=== PATIENT | female | born 1965 | race Caucasian/White ===

== ENCOUNTER → 2017-07-20 | Outpatient (CLI) | payer OTHER ==
--- NOTE | 2017-07-23 07:35 | MAMMOGRAPHY REPORT ---
BILATERAL DIGITAL SCREENING MAMMOGRAM TOMOSYNTHESIS WITH CAD: 07/20/2017 CLINICAL HISTORY: Routine screening. TECHNIQUE: Breast tomosynthesis in addition to standard 2D mammography was performed. Current study was also evaluated with a Computer Aided Detection (CAD) system. COMPARISON: Comparison is made to exams dated: 05/30/2016 mammogram, 04/26/2015 mammogram, 02/18/2014 mammogram, 01/21/2013 mammogram, 12/06/2011 mammogram, and 11/22/2010 mammogram - [facility] enter. BREAST COMPOSITION: The tissue of both breasts is heterogeneously dense, which may obscure small mas ses. FINDINGS: No suspicious masses, calcifications, or areas of architectural distortion are noted in ei ther breast. There has been no significant interval change compared to prior exams. Grouped benign-a ppearing calcifications in the right 12:00 breast are stable compared to multiple prior exams. IMPRESSION: ACR BI-RADS CATEGORY 2: BENIGN There is no mammographic evidence of malignancy. A 1 year screening mammogram is recommended. The pa tient will receive written notification of the results. Approximately 10% of breast cancers are not detected with mammography. A negative mammographic report should not delay biopsy if a clinically suggestive mass is present. Alecia Brunson M.D. ah/:07/20/2017 15:34:18 Home Care Coordinator: Biju CARRERA(Alejandro)(M), [facility] letter sent: Normal 1/2 BI-RADS Code: ACR BI-RADS Category 2: Benign
== END | disposition home or self-care (01) ==
LOC: C.MAMM 15:12
PROVIDERS: ATTEND Family Medicine
DX: Z12.31 Encounter for screening mammogram for malignant neoplasm of breast (principal)

== ENCOUNTER 2021-09-01 08:35 | Observation (INO) ==
[2021-09-01] MEDS ORDERED: SODIUM CHLORIDE 0.9% 500 ML IV STA (08:46)
[2021-09-01] MEDS ORDERED: ONDANSETRON INJ 2 MG/ML 2 ML VIAL IV STA (08:46)
[2021-09-01] MEDS ORDERED: MoRPHine SULFATE 4 MG/ML 1 ML CARP\\VIAL IV STA (08:46)
--- NOTE | 2021-09-01 09:09 | Emergency Department Note ---
Impression & Plan Closed fracture of left proximal humerus, Syncope, Fall, Abnormal EKG ED Provider Note RemedyNAME: CELIA RUIZ AGE: 56 SEX: F : 1965 ARRIVES VIA: Ambulance INFORMANT: Patient, ED PROVIDER(S): Mickey Villarreal DO CHIEF COMPLAINT: Arm pain HPI: The patient is a 56-year-old female who was on a stool working above her he ad when she fell. The patient states she fell onto her abdomen but also onto her left upper extremity. The patient states she had a syncopal episode after the fall. She was on the floor and remembers waking up. She denies having any head injury but she is unsure. She denies having any abdominal pain or chest pain. She does complain of lower back pain. She denies have any lower extremity pain. She was able to ambulate with help. She was splinted and brought to the emergency department via BLS. The patient states the pain is severe and she is feeling pain in her left upper extremity. She denies having any numbness in the arm. She denies having any difficulty with pain in the elbow or the forearm or the wrist on the left upper extremity. The patient states the pain is severe and worsens with any attempts at movement of the left shoulder or the left upper extremity. She denies having neck pain. ROS: See above HPI for pertinent positives & negatives. A total of 10 systems reviewed and were otherwise negative. PAST MEDICAL HISTORY: See Below PAST SURGICAL HISTORY: See Below FAMILY HISTORY: See Below SOCIAL HISTORY: See Below HOME MEDICATIONS: See Below ALLERGIES: See Below VITALS: See Below PHYSICAL EXAMINATION: GENERAL: The patient is awake and alert. She appears very anxious and appears to be in severe pain. EYES: Previous surgical intervention was noted. EARS, NOSE, MOUTH AND THROAT: The nose is without any evidence of any deformity. NECK: The neck is nontender and supple. RESPIRATORY: Normal respiratory effort is noted there is no evidence of wheezing rhonchi or rales CARDIOVASCULAR: Regular rate and rhythm noted there no murmurs rubs or gallops normal S1 normal S2. GASTROINTESTINAL: The abdomen is soft. Abdomen is nontender. BACK: There was no thoracic spine tenderness to palpation. Low lumbar spine tenderness was noted to palpation. There is no step-off. MUSCULOSKELETAL/EXTREMITIES: There is no evidence of gross deformity full range of motion is noted in the hips and shoulders. SKIN: There is no obvious evidence of any rash. There are no petechiae, pallor or cyanosis noted. NEUROLOGIC: Patient is awake alert and oriented x3 strength is symmetric patellar reflexes are 2+ bilaterally MEDICAL DECISION MAKING: Patient is a 56-year-old female who presented to emergency department after a fall. The patient was on a stepstool and had a fall she landed on her she suffered a proximal left humerus fracture. When she went to get up she had a syncopal episode. The patient presented to the emergency department with significant pain. Further laboratory and radiographic studies were obtained. She was treated with IV fluids and IV pain medication in the emergency depar tment. Attempts were made to apply a splint but the patient had very severe pain with any movement of the left upper extremity. I discussed her condition with the orthopedic surgeon of her choice. The patient required sedation in order to apply the splint. The patient was reevaluated multiple times. I discussed her case also with the on-call [facility] hospitalist group. They will evaluate the patient in the emergency department for further management and disposition. Certainly I feel the patient may benefit from inpatient management and if she still cannot receive significant pain relief with splinting she may require inpatient rehab. After discussion with the on-call orthopedic surgeon it does not appear that she will definitely require surgery given the morphology of the fracture. She was placed in a sling. Triage Nursing notes reviewed. Prior medical records reviewed Vital Signs: reviewed and remarkable for no significant abnormalities Differential diagnosis: Vasovagal event, dehydration, infection, hypoglycemia, electrolyte abnormalities, cardiac sources, intracerebral event, pulmonary embolism, seizure, toxicologic, neurologic, as well as other pathologies. ER treatment provided: See below Diagnostics interpreted by me: ECG: EKG was obtained in the emergency department. My interpretation is sinus rhythm at 73 bpm. First-degree block was noted. There is no ectopy. Anterior T wave inversions were noted. No previous tracing was available. Cardiac Monitoring: An order was placed for continuous cardiac monitoring. The monitor shows a rate of 72 bpm with sinus rhythm. Laboratory studies: As stated above and show below. Imaging studies: See below Consultation(s): I discussed this case with Dr. Arreguin. The patient requested that I discussed the case with Dr. Arreguin. He did evaluate the patient's x-rays. I discussed this case with Kassandra who is on-call for the [facility] hospitalist group. 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 Refrigeration Required: No Beliefs That Will Affect Care: None Current Living Situation: Spouse Feels Safe at Home: Yes Assistive Devices: None Allergies Allergies Allergy/AdvReac Type Severity Reaction Status Date / Time pseudoephedrine AdvReac Anxiety Verified 09/01/21 10:44 [From Saira] Home Meds Home Medications Medication Instructions Recorded Confirmed levothyroxine 88 mcg tablet 88 mcg PO DAILYBB 04/26/18 09/01/21 omeprazole 20 mg capsule,delayed 20 mg PO DAILYBB 09/01/21 09/01/21 release Results & Data (ED) Vital Signs Vital Signs - 24 hr 09/01/21 08:40 09/01/21 10:00 09/01/21 12:20 Temperature 36.5 C Temperature Source Oral Pulse Rate 68 Pulse Rate [Left Finger] 78 84 Pulse Rhythm Regular Pulse Strength Normal Respiratory Rate 18 20 20 Respiratory Effort / Characteristics Non-Labored Spontaneous Respiratory Depth Normal Respiratory Pattern Regular Blood Pressure 124/72 Blood Pressure [Right Arm] 123/74 119/53 L Blood Pressure Mean 89 Blood Pressure Mean [Right Arm] 90 75 Blood Pressure Position Sitting Blood Pressure Position [Right Arm] Sitting Sitting Pulse Oximetry 99 97 97 Oxygen Delivery Method Room Air Room Air Oxygen Flow Rate Sepsis Recent Fever Within 48 Hours No Sepsis New/Unexplained Change in Mental Status No Sepsis Action Taken by Nursing No Action Required 09/01/21 14:28 09/01/21 14:33 Temperature Temperature Source Pulse Rate Pulse Rate [Left Finger] 101 H 87 Pulse Rhythm Pulse Strength Respiratory Rate 20 16 Respiratory Effort / Characteristics Respiratory Depth Respiratory Pattern Blood Pressure Blood Pressure [Right Arm] 146/98 H 129/91 Blood Pressure Mean Blood Pressure Mean [Right Arm] 114 103 Blood Pressure Position Blood Pressure Position [Right Arm] Sitting Sitting Pulse Oximetry 91 98 Oxygen Delivery Method Nasal Cannula Nasal Cannula Oxygen Flow Rate 3 3 Sepsis Recent Fever Within 48 Hours Sepsis New/Unexplained Change in Mental Status Sepsis Action Taken by Retirement Medications Current Medication List: was personally reviewed by me Laboratory Data Attestation: I reviewed the patient's lab results. Result diagrams: 09/01/21 10:27 09/01/21 10:27 Lab Results 09/01/21 09/01/21 09/01/21 Range/Units 10:27 10: 10: WBC 11.03 H (4.8-10.8) K/uL RBC 4.08 L (4.2-5.4) M/uL Hgb 11.9 L (12.0-16.0) g/dL Hct 36.0 L (37-47) % MCV 88.2 (80-100) fL MCH 29.2 (25-34) pg MCHC 33.1 (32-36) g/dL RDW Std Deviation 43.5 (36.4-46.3) fL RDW Coeff of Winter 13.4 (11.5-14.5) % Plt Count 209 (130-400) K/uL MPV 10.8 H (7.4-10.4) fL Immature Gran % (Auto) 0.2 % Neut % (Auto) 89.2 % Lymph % (Auto) 4.4 % Dawson % (Auto) 5.7 % Eos % (Auto) 0.3 % Baso % (Auto) 0.2 % Neut # (Auto) 9.85 H (1.4-6.5) K/uL Lymph # (Auto) 0.48 L (1.2-3.4) K/uL Dawson # (Auto) 0.63 H (0.11-0.59) K/uL Eos # (Auto) 0.03 (0-0.5) K/uL Baso # (Auto) 0.02 (0-0.2) K/uL Immature Gran # (Auto) 0.02 (0.00-0.02) K/uL PT 10.3 (9.0-12.0) Seconds INR 1.0 (0.9-1.1) APTT 25.1 (21.0-31.0) Seconds PTT Ratio 1.0 Sodium 139 (136-145) mmol/L Potassium 4.2 (3.5-5.1) mmol/L Chloride 108 H (98-107) mmol/L Carbon Dioxide 25 (21-32) mmol/L Anion Gap 6 (3-11) BUN 21 (6-23) mg/dl Creatinine 0.60 (0.6-1.2) mg/dl Est Cr Clr Drug Dosing 110.3 ml/min Est GFR ( Amer) 118.1 ml/min Est GFR (Non-Af Amer) 101.9 ml/min BUN/Creatinine Ratio 35.0 H (10-20) Glucose 95 (70-99(Fasting)) mg/dl Calcium 8.1 L (8.5-10.1) mg/dl Total Bilirubin 0.3 (0.2-1.0) mg/dl AST 16 (13-39) U/L ALT 7 (7-52) U/L Alkaline Phosphatase 62 (34-104) U/L Troponin I < 0.03 (0-0.04) ng/ml Total Protein 6.6 (6.0-8.3) gm/dl Albumin 3.8 (3.4-5.0) gm/dl Globulin 2.8 (2.5-4.0) gm/dl Albumin/Globulin Ratio 1.4 (0.9-2) Lipase 30 (11-82) U/L SARS-CoV-2, RNA, NAAT (NEGATIVE) 09/01/21 Range/Units 14:20 WBC (4.8-10.8) K/uL RBC (4.2-5.4) M/uL Hgb (12.0-16.0) g/dL Hct (37-47) % MCV (80-100) fL MCH (25-34) pg MCHC (32-36) g/dL RDW Std Deviation (36.4-46.3) fL RDW Coeff of Winter (11.5-14.5) % Plt Count (130-400) K/uL MPV (7.4-10.4) fL Immature Gran % (Auto) % Neut % (Auto) % Lymph % (Auto) % Dawson % (Auto) % Eos % (Auto) % Baso % (Auto) % Neut # (Auto) (1.4-6.5) K/uL Lymph # (Auto) (1.2-3.4) K/uL Dawson # (Auto) (0.11-0.59) K/uL Eos # (Auto) (0-0.5) K/uL Baso # (Auto) (0-0.2) K/uL Immature Gran # (Auto) (0.00-0.02) K/uL PT (9.0-12.0) Seconds INR (0.9-1.1) APTT (21.0-31.0) Seconds PTT Ratio Sodium (136-145) mmol/L Potassium (3.5-5.1) mmol/L Chloride (98-107) mmol/L Carbon Dioxide (21-32) mmol/L Anion Gap (3-11) BUN (6-23) mg/dl Creatinine (0.6-1.2) mg/dl Est Cr Clr Drug Dosing ml/min Est GFR ( Amer) ml/min Est GFR (Non-Af Amer) ml/min BUN/Creatinine Ratio (10-20) Glucose (70-99(Fasting)) mg/dl Calcium (8.5-10.1) mg/dl Total Bilirubin (0.2-1.0) mg/dl AST (13-39) U/L ALT (7-52) U/L Alkaline Phosphatase (34-104) U/L Troponin I (0-0.04) ng/ml Total Protein (6.0-8.3) gm/dl Albumin (3.4-5.0) gm/dl Globulin (2.5-4.0) gm/dl Albumin/Globulin Ratio (0.9-2) Lipase (11-82) U/L SARS-CoV-2, RNA, NAAT NEGATIVE (NEGATIVE) Administered Medications Morphine Sulfate (Morphine Sulfate 4 Mg/Ml 1 Ml Carp\Vial) 4 mg IV Q30M PRN PRN Reason: Pain Stop: 09/15/21 08:45 Last Admin: 09/01/21 12:39 Dose: 4 mg Documented by: [id number] Admin: 09/01/21 10:14 Dose: 4 mg Documented by: [id number] Discontinued Medications Hydromorphone HCl (Hydromorphone Inj 1 Mg/Ml Syringe) 1 mg IV NOW STA Stop: 09/01/21 13:11 Last Admin: 09/01/21 13:54 Dose: 1 mg Documented by: [id number] Sodium Chloride (Nss) 500 mls @ 999 mls/hr IV .Q31M STA Stop: 09/01/21 09:16 Last Infusion: 09/01/21 10:08 Dose: 0 mls/hr Documented by: [id number] Admin: 09/01/21 09:37 Dose: 999 mls/hr Documented by: [id number] Promethazine HCl 12.5 mg/ (Sodium Chloride) 50.5 mls @ 202 mls/hr IV NOW STA Stop: 09/01/21 12:40 Last Infusion: 09/01/21 12:51 Dose: 0 mls/hr Documented by: [id number] Admin: 09/01/21 12:36 Dose: 202 mls/hr Documented by: [id number] Sodium Chloride (Nss 1000ml) 1,000 mls @ 999 mls/hr IV .Q1H1M ONE Stop: 09/01/21 15:10 Last Admin: 09/01/21 14:43 Dose: 999 mls/hr Documented by: [id number] Ketamine HCl (Ketamine Hcl Inj 50 Mg/Ml 10 Ml Vial) Confirm Administered Dose 500 mg .ROUTE .STK-MED ONE Stop: 09/01/21 14:10 Last Increment: 09/01/21 14:30 Dose: 40 mg Documented by: [id number] Morphine Sulfate (Morphine Sulfate 4 Mg/Ml 1 Ml Carp\Vial) 4 mg IV NOW STA Stop: 09/01/21 08:47 Last Admin: 09/01/21 09:37 Dose: 4 mg Documented by: [id number] Ondansetron HCl (Ondansetron Inj 2 Mg/Ml 2 Ml Vial) 4 mg IV NOW STA Stop: 09/01/21 08:47 Last Admin: 09/01/21 09:37 Dose: 4 mg Documented by: [id number] Ondansetron HCl (Ondansetron Inj 2 Mg/Ml 2 Ml Vial) Confirm Administered Dose 4 mg .ROUTE .STK-MED ONE Stop: 09/01/21 10:50 Last Admin: 09/01/21 10:52 Dose: 4 mg Documented by: [id number] Promethazine HCl (Promethazine Hcl Inj 25 Mg/Ml 1 Ml Vial) Confirm Administered Dose 25 mg .ROUTE .STK-MED ONE Stop: 09/01/21 12:30 Last Admin: 09/01/21 12:38 Dose: Not Given Documented by: [id number] Imaging Data Radiologist's Impression: Cervical Spine CT 09/01/21 08:46 CT cervical spine wo con CLINICAL HISTORY: Status post fall with neck pain COMPARISON STUDY: No previous studies for comparison. CT DOSE: 1625.91 mGy.cm TECHNIQUE: Standard CT of the Cervical Spine was performed without IV contrast. A dose lowering technique was utilized adhering to the principles of ALARA. FINDINGS: Bones: There is no evidence for an acute fracture or malalignment. The heights of the vertebral bodies are maintained. The vertebral bodies are in anatomic alignment. The odontoid is intact and the atlantoaxial articulation is within normal limits. Disc spaces:There is mild disc space narrowing at C3-4 and moderate disc space narrowing at C4-5 with mild endplate osteophyte formation. Apophyseal joints:Mild degenerative apophyseal joint disease is also present at these 2 disc space levels. Soft tissues:The prevertebral soft tissues are within normal limits. IMPRESSION: 1. No acute abnormality. 2. Degenerative disc and degenerative joint disease. ACT 112: Negative or not required by law. Electronically signed by: Dov Clifton M.D. 09/01/2021 10:10 AM Chest X-Ray 09/01/21 08:46 XR chest 1V portable HISTORY: 56 years-old Female Chest Pain acute atypical chest pain with left upper extremity pain COMPARISON: Left humerus radiographs of same day, KUB 04/28/2018. TECHNIQUE: AP view of the chest FINDINGS: Cardiac silhouette is mildly enlarged. No pneumothorax, pleural effusion or overt pulmonary edema. Mild interstitial coarsening is likely projectional. Degenerative changes of the shoulders and spine. Mildly angulated and displaced spiral fracture of the proximal left humeral diaphysis. IMPRESSION: 1. No acute cardiopulmonary abnormality. 2. Acute displaced fracture of the proximal left humeral diaphysis. ACT 112: Negative or not required by law. The above report was generated using voice recognition software. It may contain grammatical, syntax or spelling errors. Electronically signed by: Jose Middleton M.D. 09/01/2021 10:[address] 09/01/21 08:46 CT head/brain wo con CLINICAL HISTORY: Status post fall with pain COMPARISON STUDY: No previous studies for comparison. CT DOSE: TECHNIQUE: Standard CT of the Brain was performed without IV contrast. A dose lowering technique was utilized adhering to the principles of ALARA. FINDINGS: Extraaxial space: There is no evidence for subdural hematoma. There are no extra-axial fluid collections. Ventricles and cisterns: The ventricles are normal in size and configuration. There is no evidence for midline shift or mass effect. Parenchyma: There is no subarachnoid or intraparenchymal hemorrhage. There is no evidence for an acute infarct or cerebral edema. There is homogeneous attenuation of the brain parenchyma. There are no gross mass lesions. Osseous structures: There is no evidence for an acute fracture. The visualized paranasal sinuses are clear. The mastoid air cells are clear bilaterally. Soft tissues: There is no evidence for focal soft tissue swelling. IMPRESSION: No acute intracerebral pathology. ACT 112: Negative or not required by law. Electronically signed by: Dov Clifton M.D. 09/01/2021 10:07 AM Humerus X-Ray 09/01/21 08:46 XR humerus LT 2V HISTORY: 56 years-old Female fall acute left upper arm pain status post fall COMPARISON: Chest radiograph of same day TECHNIQUE: 2 views of the left humerus FINDINGS: There is an acute spiral fracture deformity of the proximal humeral diaphysis which demonstrates 12 mm medial displacement with apex lateral angulation of 8 degrees. Moderate associated soft tissue swelling. No glenohumeral dislocation. Mild cortical irregularity of the greater tuberosity. No opaque foreign body. IMPRESSION: 1. Acute mildly angulated and displaced fracture of the proximal diaphyseal left humerus. 1. Mild cortical irregularity of the greater tuberosity is likely projectional. An additional acute fracture is considered less likely. ACT 112: Negative or not required by law. The above report was generated using voice recognition software. It may contain grammatical, syntax or spelling errors. Electronically signed by: Jose Middleton M.D. 09/01/2021 10:[address] 09/01/21 08:46 CT lumbar spine wo con HISTORY: 56 years-old Female fall acute low back pain status post fall COMPARISON: CT abdomen and pelvis 04/26/2018 TECHNIQUE: Multiple axial CT images of the lumbar spine were obtained without the use of IV contrast. A dose lowering technique was used consistent with the principals of ALARA. FINDINGS: There is an acute mildly displaced spiral type fracture deformity of the proximal left humeral diaphysis seen on the bottle packer localizer image the imaged intra-abdominal structures demonstrate no acute abnormality. 2 mm nonobstructing calculus of the interpolar right kidney. Punctate nonobstructing calculus of the inferior pole left kidney. There are a few small left-sided renal sinus cysts. No adenopathy or paravertebral edema. Mild fecal retention. Visualized appendix is noninflamed. Moderate to severe L5-S1 intervertebral disc space narrowing with moderate spondylitic spurring and small posterior disc osteophyte complex. Mild additional multilevel intervertebral disc space narrowing with spondylitic spurring and mostly mild facet arthrosis. There is moderate L5-S1 facet arthrosis. Subtle linear lucency of the left L3 transverse process suggestive of a vascular channel. No acute fracture or subluxation identified. L3-L4: Spondylitic spurring with posterior annular disc bulge, eccentric to the left neural foramen and far left lateral distribution. Flattening of the ventral thecal sac without significant central canal stenosis. There is mild right with [id number] left neural foraminal stenosis. L4-L5: Spondylitic spurring with small posterior annular disc bulge. Ligamentum flavum thickening with mild facet arthrosis. Flattening of the ventral thecal sac without significant central canal stenosis. Mild bilateral neural foraminal narrowing. L5-S1: Small posterior disc osteophyte complex with moderate facet arthrosis. Central canal is patent. There is at least mild bilateral neural foraminal narrowing. IMPRESSION: 1. Degenerative changes of the lumbar spine as above without acute fracture or subluxation. 2. Nonobstructing bilateral nephrolithiasis. ACT 112: Negative or not required by law. The above report was generated using voice recognition software. It may contain grammatical, syntax or spelling errors. Electronically signed by: Jose Middleton M.D. 09/01/2021 10:30 AM Discharge Plan Visit Data Chief Complaint: Arm Pain Stated Complaint: FALL, ARM FX ED Provider: Mickey Villarreal Discharge Problem: Closed fracture of left proximal humerus, Syncope, Fall, Abnormal EKG Patient Disposition: Being Evaluated by Hospitalist
--- NOTE | 2021-09-01 10:08 | CT Scan Report ---
CT head/brain wo con CLINICAL HISTORY: Status post fall with pain COMPARISON STUDY: No previous studies for comparison. CT DOSE: TECHNIQUE: Standard CT of the Brain was performed without IV contrast. A dose lowering technique was utilized adhering to the principles of ALARA. FINDINGS: Extraaxial space: There is no evidence for subdural hematoma. There are no extra-axial fluid collecti ons. Ventricles and cisterns: The ventricles are normal in size and configuration. There is no evidence f or midline shift or mass effect. Parenchyma: There is no subarachnoid or intraparenchymal hemorrhage. There is no evidence for an acu te infarct or cerebral edema. There is homogeneous attenuation of the brain parenchyma. There are no gross mass lesions. Osseous structures: There is no evidence for an acute fracture. The visualized paranasal sinuses are clear. The mastoid air cells are clear bilaterally. Soft tissues: There is no evidence for focal soft tissue swelling. IMPRESSION: No acute intracerebral pathology. ACT 112: Negative or not required by law. Electronically signed by: Dov Clifton M.D. 09/01/2021 10:07 AM
--- NOTE | 2021-09-01 10:11 | CT Scan Report ---
CT cervical spine wo con CLINICAL HISTORY: Status post fall with neck pain COMPARISON STUDY: No previous studies for comparison. CT DOSE: 1625.91 mGy.cm TECHNIQUE: Standard CT of the Cervical Spine was performed without IV contrast. A dose lowering te chnique was utilized adhering to the principles of ALARA. FINDINGS: Bones: There is no evidence for an acute fracture or malalignment. The heights of the vertebral sabine s are maintained. The vertebral bodies are in anatomic alignment. The odontoid is intact and the atla ntoaxial articulation is within normal limits. Disc spaces:There is mild disc space narrowing at C3-4 and moderate disc space narrowing at C4-5 with mild endplate osteophyte formation. Apophyseal joints:Mild degenerative apophyseal joint disease is also present at these 2 disc space le vels. Soft tissues:The prevertebral soft tissues are within normal limits. IMPRESSION: 1. No acute abnormality. 2. Degenerative disc and degenerative joint disease. ACT 112: Negative or not required by law. Electronically signed by: Dov Clifton M.D. 09/01/2021 10:10 AM
[2021-09-01] MEDS: MoRPHine SULFATE 4 MG/ML 1 ML CARP\\VIAL IV PRN ×2 (10:14→12:39)
--- NOTE | 2021-09-01 10:31 | CT Scan Report ---
CT lumbar spine wo con HISTORY: 56 years-old Female fall acute low back pain status post fall COMPARISON: CT abdomen and pelvis 04/26/2018 TECHNIQUE: Multiple axial CT images of the lumbar spine were obtained without the use of IV contrast. A dose lowering technique was used consistent with the principals of ALARA. FINDINGS: There is an acute mildly displaced spiral type fracture deformity of the proximal left humeral diaphy sis seen on the marketing financial analyst localizer image the imaged intra-abdominal structures demonstrate no acute abno rmality. 2 mm nonobstructing calculus of the interpolar right kidney. Punctate nonobstructing calculu s of the inferior pole left kidney. There are a few small left-sided renal sinus cysts. No adenopathy or paravertebral edema. Mild fecal retention. Visualized appendix is noninflamed. Moderate to severe L5-S1 intervertebral disc space narrowing with moderate spondylitic spurring and s mall posterior disc osteophyte complex. Mild additional multilevel intervertebral disc space narrowin g with spondylitic spurring and mostly mild facet arthrosis. There is moderate L5-S1 facet arthrosis. Subtle linear lucency of the left L3 transverse process suggestive of a vascular channel. No acute f racture or subluxation identified. L3-L4: Spondylitic spurring with posterior annular disc bulge, eccentric to the left neural foramen a nd far left lateral distribution. Flattening of the ventral thecal sac without significant central ca nal stenosis. There is mild right with [id number] left neural foraminal stenosis. L4-L5: Spondylitic spurring with small posterior annular disc bulge. Ligamentum flavum thickening wit h mild facet arthrosis. Flattening of the ventral thecal sac without significant central canal stenos is. Mild bilateral neural foraminal narrowing. L5-S1: Small posterior disc osteophyte complex with moderate facet arthrosis. Central canal is patent . There is at least mild bilateral neural foraminal narrowing. IMPRESSION: 1. Degenerative changes of the lumbar spine as above without acute fracture or subluxation. 2. Nonobstructing bilateral nephrolithiasis. ACT 112: Negative or not required by law. The above report was generated using voice recognition software. It may contain grammatical, syntax o r spelling errors. Electronically signed by: Jose Middleton M.D. 09/01/2021 10:30 AM
[2021-09-01 10:48] LABS: Basophils # (auto) 0.02 K/uL (0-0.2); Basophils % (auto) 0.2 %; Eosinophils # (auto) 0.03 K/uL (0-0.5); Eosinophils % (auto) 0.3 %; Hemoglobin 11.9 g/dL (12.0-16.0); Immature Granulocytes # (auto) 0.02 K/uL (0.00-0.02); Immature Granulocytes % (auto) 0.2 %; Lymphocytes # (auto) 0.48 K/uL (1.2-3.4); Lymphocytes % (auto) 4.4 %; Mean Corpuscular Hemoglobin 29.2 pg (25-34); Mean Corpuscular Hgb Conc 33.1 g/dL (32-36); Mean Corpuscular Volume 88.2 fL (80-100); Mean Platelet Volume 10.8 fL (7.4-10.4); Monocytes # (auto) 0.63 K/uL (0.11-0.59); Monocytes % (auto) 5.7 %; Neutrophils # (auto) 9.85 K/uL (1.4-6.5); Neutrophils % (auto) 89.2 %; Platelet Count 209 K/uL (130-400); RDW Coefficient of Variation 13.4 % (11.5-14.5); RDW Standard Deviation 43.5 fL (36.4-46.3); Red Blood Count 4.08 M/uL (4.2-5.4); White Blood Count 11.03 K/uL (4.8-10.8)
[2021-09-01] MEDS ORDERED: ONDANSETRON INJ 2 MG/ML 2 ML VIAL ONE (10:49)
--- NOTE | 2021-09-01 10:56 | XRay Report ---
XR humerus LT 2V HISTORY: 56 years-old Female fall acute left upper arm pain status post fall COMPARISON: Chest radiograph of same day TECHNIQUE: 2 views of the left humerus FINDINGS: There is an acute spiral fracture deformity of the proximal humeral diaphysis which demonstrates 12 m m medial displacement with apex lateral angulation of 8 degrees. Moderate associated soft tissue swel ling. No glenohumeral dislocation. Mild cortical irregularity of the greater tuberosity. No opaque fo reign body. IMPRESSION: 1. Acute mildly angulated and displaced fracture of the proximal diaphyseal left humerus. 1. Mild cortical irregularity of the greater tuberosity is likely projectional. An additional acute f racture is considered less likely. ACT 112: Negative or not required by law. The above report was generated using voice recognition software. It may contain grammatical, syntax o r spelling errors. Electronically signed by: Jose Middleton M.D. 09/01/2021 10:55 AM
--- NOTE | 2021-09-01 10:57 | XRay Report ---
XR chest 1V portable HISTORY: 56 years-old Female Chest Pain acute atypical chest pain with left upper extremity pain COMPARISON: Left humerus radiographs of same day, KUB 04/28/2018. TECHNIQUE: AP view of the chest FINDINGS: Cardiac silhouette is mildly enlarged. No pneumothorax, pleural effusion or overt pulmonary edema. Mi ld interstitial coarsening is likely projectional. Degenerative changes of the shoulders and spine. M ildly angulated and displaced spiral fracture of the proximal left humeral diaphysis. IMPRESSION: 1. No acute cardiopulmonary abnormality. 2. Acute displaced fracture of the proximal left humeral diaphysis. ACT 112: Negative or not required by law. The above report was generated using voice recognition software. It may contain grammatical, syntax o r spelling errors. Electronically signed by: Jose Middleton M.D. 09/01/2021 10:56 AM
[2021-09-01 11:05] LABS: Troponin I < 0.03 ng/ml (0-0.04)
[2021-09-01 11:06] LABS: Alanine Aminotransferase 7 U/L (7-52); Albumin Globulin Ratio 1.4 (0.9-2); Albumin Level 3.8 gm/dl (3.4-5.0); Alkaline Phosphatase 62 U/L (34-104); Anion Gap 6 (3-11); Aspartate Aminotransferase 16 U/L (13-39); Bilirubin,Total 0.3 mg/dl (0.2-1.0); Blood Urea Nitrogen 21 mg/dl (6-23); Calcium 8.1 mg/dl (8.5-10.1); Carbon Dioxide 25 mmol/L (21-32); Chloride 108 mmol/L (98-107); Creatinine Clr Calc Pharmacy 110.3 ml/min; Est GFR (African American) 118.1 ml/min; Est GFR (Non-African American) 101.9 ml/min; Globulin 2.8 gm/dl (2.5-4.0); Glucose 95 mg/dl (70-99(Fasting)); Lipase 30 U/L (11-82); Potassium 4.2 mmol/L (3.5-5.1); Sodium 139 mmol/L (136-145); Total Protein 6.6 gm/dl (6.0-8.3)
[2021-09-01 11:10] LABS: Partial Thromboplastin Time 25.1 Seconds (21.0-31.0); Prothrombin Time 10.3 Seconds (9.0-12.0)
[2021-09-01] MEDS ORDERED: PROMETHAZINE HCL 12.5 MG in SODIUM CHLORIDE 0.9% 50 ML IV STA (12:26)
[2021-09-01] MEDS ORDERED: PROMETHAZINE HCL INJ 25 MG/ML 1 ML VIAL ONE (12:29)
[2021-09-01] MEDS ORDERED: HYDROmorphone INJ 1 MG/ML SYRINGE IV STA (13:10)
[2021-09-01] MEDS ORDERED: KETAMINE HCL INJ 50 MG/ML 10 ML VIAL ONE (14:09)
[2021-09-01] MEDS ORDERED: SODIUM CHLORIDE 0.9% 1000ML 1,000 ML IV ONE (14:10)
[2021-09-01] MEDS ORDERED: KETAMINE HCL INJ 50 MG/ML 10 ML VIAL IV ONE (14:25)
--- NOTE | 2021-09-01 14:25 | Electrocardiogram Report ---
Test Reason : Blood Pressure : / mmHG Vent. Rate : 073 BPM Atrial Rate : 073 BPM P-R Int : 270 ms QRS Dur : 060 ms QT Int : 404 ms P-R-T Axes : 033 070 040 degrees QTc Int : 445 ms Sinus rhythm with 1st degree A-V block Left atrial enlargement Low voltage QRS Poor R wave progression, consider anterior FL vs. lead placement vs. LVH Abnormal ECG No previous ECGs available Confirmed by Tj Tyler ([id number]) on 09/01/2021 2:24:56 PM Referred By: Confirmed By:Tj Tyler
--- NOTE | 2021-09-01 14:37 | History & Physical Report ---
Date of Service September 01, 2021 History of Present Illness Allergies Allergy/AdvReac Type Severity Reaction Status Date / Time pseudoephedrine AdvReac Anxiety Verified 09/01/21 10:44 [From [facility]] Home Medications Medication Instructions Recorded Confirmed Type levothyroxine 88 mcg tablet 88 mcg PO DAILYBB 04/26/18 09/01/21 History omeprazole 20 mg capsule,delayed 20 mg PO DAILYBB 09/01/21 09/01/21 History release Past Med/Surg History Medical History (Updated 09/01/21 @ 15:51 by Mickey Villarreal DO) Hypothyroidism IBS (irritable bowel syndrome) Legal blindness Congenital rubella syndrome Migraines Surgical History History of partial hysterectomy Hx of eye surgery Family History Other Diabetes Heart disease Social History Smoking Status: Never smoker Second Hand Exposure: No; Hx Alcohol Use: Yes Alcohol type: wine Hx Substance Use: No Preferred Language: Chadian Communication Ability: Effective Visual Impairment: Blindness Order Processing Manager Required: No Beliefs That Will Affect Care: None Current Living Situation: Spouse Feels Safe at Home: Yes Assistive Devices: None Results & Data Results & Data ([facility]) Vital Signs (Past 12 Hours) Vital Signs Temp Pulse Pulse Resp BP BP Pulse Ox 09/01/21 12:20 84 20 119/53 L 97 09/01/21 10:00 78 20 123/74 97 09/01/21 08:40 36.5 C 68 18 124/72 99 Code Status & VTE Plan VTE Prophylaxis Plan VTE Prophylaxis will be ordered: Yes
--- NOTE | 2021-09-01 14:37 | History & Physical Report ---
Date of Service September 01, 2021 Assessment & Plan (1) Left humeral fracture: Plan: - Pain management, bowel regimen ordered - Pain reduction was difficult to acheive in the ER - got total of MS 12 mg IV and Dilaudid 1 mg with minimal improvement - no hx of narcotic tolerance per family/patient, PDMP reviewed without any Rx history. - Consult ortho - pt is s/p reduction and splinting of Left humeral fracture - pt requests Dr. Arreguin so will consult [facility] - PT/OT consults (2) Syncope: Plan: -Appears that this occurred after the patient's fall, was not the cause of the fall initially per patient/family report -Check 2D echo ofr completeness -At this time no cardiology consult, monitor overnight on telemetry (3) Hypothyroidism: Plan: -Continue levothyroxine (4) Migraines: Plan: -History of such, none currently, stable DVT ppx: - teds, scds CODE: Full code Dispo: From home, likely to remain in the hospital x 1 overnight History of Present Illness Chief Complaint: syncope, fall, left arm pain Primary Care Provider: Srikanth Guzmán MD This is a 56-year-old female with PMHx of hypothyroidism, GERD who presents after an acute fall she sustained at home while she was attempting to fix a curtain while standing on an end table/stool. She reports losing her balance and falling off, coming down onto the left side, and feeling extreme pain in her left arm. She was sitting up on the floor and then passed out, her reports this was likely due to pain. She has never passed out before, denies hitting her head or other trauma. Her and humibiw-ym-[id number] are present at bedside and helps support the history as she has been sedated for reduction of her left humerus fracture seen on imaging. Denies any other acute complaints. Patient did take her morning medications this morning. She denies eating anything yet today. In the ER earlier her pain was difficult to control and th erefore medicine has been asked to observe her overnight, as well as work-up for syncope. Allergies Allergy/AdvReac Type Severity Reaction Status Date / Time pseudoephedrine AdvReac Anxiety Verified 09/01/21 10:44 [From [facility]] Home Medications Medication Instructions Recorded Confirmed Type levothyroxine 88 mcg tablet 88 mcg PO DAILYBB 04/26/18 09/01/21 History omeprazole 20 mg capsule,delayed 20 mg PO DAILYBB 09/01/21 09/01/21 History release Past Med/Surg History Medical History Hypothyroidism IBS (irritable bowel syndrome) Legal blindness Congenital rubella syndrome Migraines Surgical History History of partial hysterectomy Hx of eye surgery Family History Other Diabetes Heart disease Social History Smoking Status: Never smoker Second Hand Exposure: No; Hx Alcohol Use: Yes Alcohol type: wine Hx Substance Use: No Preferred Language: Tajik Communication Ability: Effective Visual Impairment: Blindness Accessioner Required: No Beliefs That Will Affect Care: None Current Living Situation: Spouse Feels Safe at Home: Yes Assistive Devices: None Review of Systems Review of Systems: Constitutional: No fever, sweats or chills Eyes: No diplopia, no worsening or blurred vision ENT: normal hearing, no trouble swallowing Respiratory: No cough, sputum, dyspnea at rest or on exertion Cardiovascular: No chest pain, tightness or palpitations Abdomen: No pain, nausea, vomiting, diarrhea or constipation Musculoskeletal:+ Left arm pain, no joint pain, calf pain, no swelling Neurologic: No weakness, numbness/tingling, or balance problems Psychiatric: No anxiety or depression Skin: No rash or itch Physical Exam Physical Exam: General: awake, alert, + sedated, no apparent distress Head: Normocephalic, atraumatic ENT: PERRL, EOMI, no pharyngeal exudate, mucous membranes moist Chest: Clear to auscultation, on room air, no adventitious breath sounds Cardiac: Regular rate and rhythm, no murmur, no JVD, normal peripheral pulses, good capillary refill Abdominal: NABS x 4 quadrants, soft, nondistended, nontender to palpation, no rebound or guarding Extremities: LUE splinted and wrapped, elevated, otherwise normal inspection, no peripheral edema or erythema, calfs nontender to palpation Psych: Normal mood and affect Neuro: AAO x 3, strength intact bilaterally and rated 5/5, no gross motor deficits, speech is clear, no peripheral sensory deficits Results & Data Results & Data ([facility]) Vital Signs (Past 12 Hours) Vital Signs Temp Pulse Pulse Resp BP BP Pulse Ox 09/01/21 12:20 84 20 119/53 L 97 09/01/21 10:00 78 20 123/74 97 09/01/21 08:40 36.5 C 68 18 124/72 99 Laboratory Results 09/01/21 09/01/21 09/01/21 14:20 10:27 10:27 WBC RBC Hgb Hct MCV MCH MCHC RDW Std Deviation RDW Coeff of Winter Plt Count MPV Immature Gran % (Auto) Neut % (Auto) Lymph % (Auto) [place] % (Auto) Eos % (Auto) Baso % (Auto) Neut # (Auto) Lymph # (Auto) [place] # (Auto) Eos # (Auto) Baso # (Auto) Immature Gran # (Auto) PT 10.3 INR 1.0 APTT 25.1 PTT Ratio 1.0 Sodium 139 Potassium 4.2 Chloride 108 H Carbon Dioxide 25 Anion Gap 6 BUN 21 Creatinine 0.60 Est Cr Clr Drug Dosing 110.3 Est GFR ( Amer) 118.1 Est GFR (Non-Af Amer) 101.9 BUN/Creatinine Ratio 35.0 H Glucose 95 Calcium 8.1 L Total Bilirubin 0.3 AST 16 ALT 7 Alkaline Phosphatase 62 Troponin I < 0.03 Total Protein 6.6 Albumin 3.8 Globulin 2.8 Albumin/Globulin Ratio 1.4 Lipase 30 SARS-CoV-2, RNA, NAAT NEGATIVE 09/01/21 10:27 WBC 11.03 H RBC 4.08 L Hgb 11.9 L Hct 36.0 L MCV 88.2 MCH 29.2 MCHC 33.1 RDW Std Deviation 43.5 RDW Coeff of Winter 13.4 Plt Count 209 MPV 10.8 H Immature Gran % (Auto) 0.2 Neut % (Auto) 89.2 Lymph % (Auto) 4.4 [place] % (Auto) 5.7 Eos % (Auto) 0.3 Baso % (Auto) 0.2 Neut # (Auto) 9.85 H Lymph # (Auto) 0.48 L [place] # (Auto) 0.63 H Eos # (Auto) 0.03 Baso # (Auto) 0.02 Immature Gran # (Auto) 0.02 PT INR APTT PTT Ratio Sodium Potassium Chloride Carbon Dioxide Anion Gap BUN Creatinine Est Cr Clr Drug Dosing Est GFR ( Amer) Est GFR (Non-Af Amer) BUN/Creatinine Ratio Glucose Calcium Total Bilirubin AST ALT Alkaline Phosphatase Troponin I Total Protein Albumin Globulin Albumin/Globulin Ratio Lipase SARS-CoV-2, RNA, NAAT Diagnostic Findings Cervical Spine CT 09/01/21 08:46 CT cervical spine wo con CLINICAL HISTORY: Status post fall with neck pain COMPARISON STUDY: No previous studies for comparison. CT DOSE: 1625.91 mGy.cm TECHNIQUE: Standard CT of the Cervical Spine was performed without IV contrast. A dose lowering technique was utilized adhering to the principles of ALARA. FINDINGS: Bones: There is no evidence for an acute fracture or malalignment. The heights of the vertebral bodies are maintained. The vertebral bodies are in anatomic alignment. The odontoid is intact and the atlantoaxial articulation is within normal limits. Disc spaces:There is mild disc space narrowing at C3-4 and moderate disc space narrowing at C4-5 with mild endplate osteophyte formation. Apophyseal joints:Mild degenerative apophyseal joint disease is also present at these 2 disc space levels. Soft tissues:The prevertebral soft tissues are within normal limits. IMPRESSION: 1. No acute abnormality. 2. Degenerative disc and degenerative joint disease. ACT 112: Negative or not required by law. Electronically signed by: Dov Clifton M.D. 09/01/2021 10:10 AM Chest X-Ray 09/01/21 08:46 XR chest 1V portable HISTORY: 56 years-old Female Chest Pain acute atypical chest pain with left upper extremity pain COMPARISON: Left humerus radiographs of same day, KUB 04/28/2018. TECHNIQUE: AP view of the chest FINDINGS: Cardiac silhouette is mildly enlarged. No pneumothorax, pleural effusion or overt pulmonary edema. Mild interstitial coarsening is likely projectional. Degenerative changes of the shoulders and spine. Mildly angulated and displaced spiral fracture of the proximal left humeral diaphysis. IMPRESSION: 1. No acute cardiopulmonary abnormality. 2. Acute displaced fracture of the proximal left humeral diaphysis. ACT 112: Negative or not required by law. The above report was generated using voice recognition software. It may contain grammatical, syntax or spelling errors. Electronically signed by: Jose Middleton M.D. 09/01/2021 10:[address] 09/01/21 08:46 CT head/brain wo con CLINICAL HISTORY: Status post fall with pain COMPARISON STUDY: No previous studies for comparison. CT DOSE: TECHNIQUE: Standard CT of the Brain was performed without IV contrast. A dose lowering technique was utilized adhering to the principles of ALARA. FINDINGS: Extraaxial space: There is no evidence for subdural hematoma. There are no extra-axial fluid collections. Ventricles and cisterns: The ventricles are normal in size and configuration. There is no evidence for midline shift or mass effect. Parenchyma: There is no subarachnoid or intraparenchymal hemorrhage. There is no evidence for an acute infarct or cerebral edema. There is homogeneous attenuation of the brain parenchyma. There are no gross mass lesions. Osseous structures: There is no evidence for an acute fracture. The visualized paranasal sinuses are clear. The mastoid air cells are clear bilaterally. Soft tissues: There is no evidence for focal soft tissue swelling. IMPRESSION: No acute intracerebral pathology. ACT 112: Negative or not required by law. Electronically signed by: Dov Clifton M.D. 09/01/2021 10:07 AM Humerus X-Ray 09/01/21 08:46 XR humerus LT 2V HISTORY: 56 years-old Female fall acute left upper arm pain status post fall COMPARISON: Chest radiograph of same day TECHNIQUE: 2 views of the left humerus FINDINGS: There is an acute spiral fracture deformity of the proximal humeral diaphysis which demonstrates 12 mm medial displacement with apex lateral angulation of 8 degrees. Moderate associated soft tissue swelling. No glenohumeral dislocation. Mild cortical irregularity of the greater tuberosity. No opaque foreign body. IMPRESSION: 1. Acute mildly angulated and displaced fracture of the proximal diaphyseal left humerus. 1. Mild cortical irregularity of the greater tuberosity is likely projectional. An additional acute fracture is considered less likely. ACT 112: Negative or not required by law. The above report was generated using voice recognition software. It may contain grammatical, syntax or spelling errors. Electronically signed by: Jose Middleton M.D. 09/01/2021 10:[address] 09/01/21 08:46 CT lumbar spine wo con HISTORY: 56 years-old Female fall acute low back pain status post fall COMPARISON: CT abdomen and pelvis 04/26/2018 TECHNIQUE: Multiple axial CT images of the lumbar spine were obtained without the use of IV contrast. A dose lowering technique was used consistent with the principals of TOOTIE. FINDINGS: There is an acute mildly displaced spiral type fracture deformity of the proximal left humeral diaphysis seen on the medical delivery technician localizer image the imaged intra-abdominal structures demonstrate no acute abnormality. 2 mm nonobstructing calculus of the interpolar right kidney. Punctate nonobstructing calculus of the inferior pole left kidney. There are a few small left-sided renal sinus cysts. No adenopathy or paravertebral edema. Mild fecal retention. Visualized appendix is noninflamed. Moderate to severe L5-S1 intervertebral disc space narrowing with moderate spondylitic spurring and small posterior disc osteophyte complex. Mild additional multilevel intervertebral disc space narrowing with spondylitic spurring and mostly mild facet arthrosis. There is moderate L5-S1 facet arthrosis. Subtle linear lucency of the left L3 transverse process suggestive of a vascular channel. No acute fracture or subluxation identified. L3-L4: Spondylitic spurring with posterior annular disc bulge, eccentric to the left neural foramen and far left lateral distribution. Flattening of the ventral thecal sac without significant central canal stenosis. There is mild right with [id number] left neural foraminal stenosis. L4-L5: Spondylitic spurring with small posterior annular disc bulge. Ligamentum flavum thickening with mild facet arthrosis. Flattening of the ventral thecal sac without significant central canal stenosis. Mild bilateral neural foraminal narrowing. L5-S1: Small posterior disc osteophyte complex with moderate facet arthrosis. Central canal is patent. There is at least mild bilateral neural foraminal narrowing. IMPRESSION: 1. Degenerative changes of the lumbar spine as above without acute fracture or subluxation. 2. Nonobstructing bilateral nephrolithiasis. ACT 112: Negative or not required by law. The above report was generated using voice recognition software. It may contain grammatical, syntax or spelling errors. Electronically signed by: Jose Middleton M.D. 09/01/2021 10:30 AM Code Status & VTE Plan Code Status Full code VTE Prophylaxis Plan VTE Prophylaxis will be ordered: Yes Supervising Physician Co-Signing Physician Notes And is a 56-year-old female with history of hypothyroidism, irritable bowel syndrome, GERD, legally blind presents with history of fall resulting in left arm pain. Patient admits to passing out for few seconds after the fall which was witnessed by her . No known seizure-like activity or bowel, bladder incontinence, confusion after the syncopal episode. Currently she denies any chest pain, shortness of breath, dizziness, nausea, abdominal pain. Please review HPI for complete details of presentation. Blood work suggestive of leukocytosis 11 K, hemoglobin 11.9, chloride 108, calcium 8.1. Imaging studies suggestive of acute mildly angulated, displaced fracture of the proximal distal left humerus. He had showed no acute intracranial pathology. On exam patient is moderately built and nourished, no apparent distress, normocephalic atraumatic, EOMI, legally blind, normal breath sounds, clear to auscultation, S1-S2, no murmur, no pedal edema, left upper extremity splint, abdomen soft, nontender, normal bowel sounds, alert, awake, oriented, grossly no focal deficits. Patient is admitted for management of left humeral fracture, syncopal episode. Syncope likely vasovagal secondary to the fall. Pain control. Orthopedics consulted. PT OT when appropriate. Follow-up ECHO. I personally reviewed the record. Patient is interviewed and examined at bedside. Patient's care is coordinated with Autumn Dove PA-C. Please refer to the documentation above for details of patient's presentation and for discussion of other issues.
--- NOTE | 2021-09-01 15:02 | Emergency Department Note ---
Pre Sedation Assessment Vital Signs Temp Pulse Pulse Resp BP BP Pulse Ox 09/01/21 14:33 87 16 129/91 98 09/01/21 14:28 101 H 20 146/98 H 91 09/01/21 12:20 84 20 119/53 L 97 09/01/21 10:00 78 20 123/74 97 09/01/21 08:40 36.5 C 68 18 124/72 99 Cardiovascular RRR, no murmur, no edema + regular rate; no tachycardic + S1 normal and + S2 normal + PMI normal + radial pulses present + capillary refill normal; no edema Respiratory normal respiratory effort, lungs clear to auscultation + respiratory effort normal, + cough and + tachypneic; no retractions + clear to auscultation bilaterally Pre-Sedation Airway Assessment Smoking Status: Never smoker Hx Sleep Apnea: No Short, Thick Neck: No Oral Cavity: no Loose Teeth Mallampati Class: I NPO Status Date of Last Intake of Fluids: 09/01/21 Time of Last Intake of Fluids: 08:30 Date of Last Intake of Solid Food: 09/01/21 Time of Last Intake of Solid Foods: 08:30 Procedure Planning Contraindications for Sedation: none Current Medications Reviewed: Yes Notes The planned sedation has been discussed with the patient. Informed Consent was obtained. I have identified the patient, determined the appropriateness of sedation and have assessed the patient immediately prior to the procedure. All medicine(s) and interventions are by my order.
--- NOTE | 2021-09-01 15:02 | Emergency Department Note ---
Post Sedation Assessment Vital Signs Temp Pulse Pulse Resp BP BP Pulse Ox 09/01/21 14:33 87 16 129/91 98 09/01/21 14:28 101 H 20 146/98 H 91 09/01/21 12:20 84 20 119/53 L 97 09/01/21 10:00 78 20 123/74 97 09/01/21 08:40 36.5 C 68 18 124/72 99 Recovery Score Activity: Moves 4 extremities Respiration: Deep Breath/Cough Consciousness: Arouseable (by name) Oxygen Saturation: > 92% On Room Air Discharge Sedation Unexpected Event: None Post Sedation Plan On clinical assessment, the patient appears to have tolerated the sedation without complications. Patient is recovering as anticipated. Patient will continue to be monitored by nursing and may be discharged when sedation discharge criteria are met per below protocol. Upon Completions of procedure up to 15 minutes continue every 5 minute vital signs and the P.A.R. score; then discharge to a Phase I or Fast Track to Phase II per the following guidelines: * Discharge Patient to appropriate Phase II area if PAR is 8 or greater or return to pre- procedure baseline. The post - procedure orders will be as directed. * If PAR score is less than 8 or not return to pre-procedure baseline then patient will follow Phase I monitoring till PAR is reached for Phase II. The Phase I may be done in procedure room or may call to secure a Phase I area. * If naloxone or flumazenil are used for reversal, hold in Phase I for continued monitoring from when last reversal dose was given for a minimum of 60 minutes or longer pending the nurse and/or physician discretion of patient condition before discharge to Phase II. Please call the Sedation Physician to re-evaluate and complete post-note for discharge to Phase II area. Do NOT discharge from procedure sedation or Phase 1 until post- sedation evaluation note is complete by procedure /sedation MD Sedation Discharge Instructions to be given to the patient at discharge to home. Sedation Data Time Out Team Members Agree on the Following: Correct Patient, Correct Procedure, Correct Site-Side and Allergies Verified Team Agrees: Yes Time Out Performed Time: 14:24 Sedation Times Sedation Start Date: 09/01/21 Sedation Start Time: 14:24 Sedation End Date: 09/01/21 Sedation End Time: 14:40 Total Sedation Time: 16 Procedure Times Procedure Start Time:: 14:24 Procedure End Time: 11:45
[2021-09-01] MEDS ORDERED: ACETAMINOPHEN 325 MG TAB PO PRN (18:07)
[2021-09-01] MEDS ORDERED: HYDROmorphone INJ 0.5 MG/0.5 ML SYR IV PRN (18:07)
[2021-09-01] MEDS ORDERED: oxyCODONE HCL IR 5 MG TAB (IMMEDIATE RELEASE) PO PRN (18:07)
[2021-09-01] MEDS ORDERED: ONDANSETRON INJ 2 MG/ML 2 ML VIAL IV PRN (18:07)
[2021-09-01] MEDS: ACETAMINOPHEN 500 MG TAB PO SCH (21:49)
--- NOTE | 2021-09-02 00:21 | Orthopedic Consultation ---
Date of Service September 02, 2021 Assessment & Plan (1) Closed fracture of left proximal humerus: Closed fracture of the proximal diaphysis of the left humerus. It is in acceptable alignment. Recommend nonoperative treatment. We will begin in this coaptation splint and likely transition to a Chong brace in clinic in 10-14 days. Routine pain management. I assured her that most of these types of fractures are treated successfully without surgery. Pain is worse for the first 2 weeks. She should follow-up with myself or Dr. Arreguin as requested in 10-14 days for repeat x-rays and further management. [place] [facility] [place] questions. History of Present Illness Reason for Consultation: left prox humerus fx Requesting Physician: . Attending Physician: Bigg Garrido MD 56-year-old female sustained a fall at home directly onto her left shoulder resulting in immediate pain. She was brought to the emergency room. Work-up revealed a proximal humerus fracture that was reduced and splinted by the emergency room staff. She had significant pain, so was admitted for pain control primarily. Orthopedics consulted for definitive management. Allergies Allergy/AdvReac Type Severity Reaction Status Date / Time pseudoephedrine AdvReac Anxiety Verified 09/01/21 10:44 [From [facility]] Home Medications Medication Instructions Recorded Confirmed Type levothyroxine 88 mcg tablet 88 mcg PO DAILYBB 04/26/18 09/01/21 History omeprazole 20 mg capsule,delayed 20 mg PO DAILYBB 09/01/21 09/01/21 History release Past Med/Surg History Medical History Hypothyroidism IBS (irritable bowel syndrome) Legal blindness Congenital rubella syndrome Migraines Surgical History History of partial hysterectomy Hx of eye surgery Family History Other Diabetes Heart disease Social History Smoking Status: Never smoker Second Hand Exposure: No; Hx Alcohol Use: No Hx Substance Use: No Preferred Language: Venezuelan Communication Ability: Effective Visual Impairment: Blindness 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 Physical Exam General: She appeared drowsy due to pain management. She was in no acute distress. She answered questions easily Left shoulder: Coaptation splint applied and well fit. Appropriate height. No ecchymosis about the shoulder. Intact light touch sensation throughout the axillary nerve distribution. Full active range of motion of her digits with intact sensation throughout. Well-perfused hand. Constitutional well developed and well nourished; no acute distress and not intoxicated leslie earing Respiratory normal respiratory effort; no respiratory distress Cardiovascular Extremities: normal capillary refill; no edema Skin no rashes, warm and dry Psychiatric A+Ox3, euthymic affect Results & Data Results & Data Laboratory Results . Diagnostic Findings Radiographs of her humerus and shoulder reveal a short oblique fracture of the proximal shaft. It is in acceptable alignment. PG Care Time/CCT Total # of Minutes Spent Total Time Spent with Patient: Total time spent is greater than 50% in coordination of care (as documented) at patient's floor/unit and/or counseling patient: Coding Level of Care Code 42900 Inpt Consult Level 4 Diagnoses Closed fracture of left proximal humerus S42.292A Encounter type: initial encounter Fracture alignment: displaced Fracture morphology: other fracture Additional Codes Fx Shoulder/Humerus - Proximal humerus: Proximal humerus ([id number]) (1) Closed fracture of left proximal humerus Encounter type: initial encounter Fracture alignment: displaced Fracture morphology: other fracture Qualified Code(s): S42.292A - Other displaced fracture of upper end of left humerus, initial encounter for closed fracture
[2021-09-02] MEDS: PANTOprazole 40 MG TAB PO SCH (06:15)
[2021-09-02] MEDS: ACETAMINOPHEN 500 MG TAB PO SCH ×3 (06:15→21:06)
[2021-09-02] MEDS: bisacodyL 5 MG TABEC PO SCH (08:15)
[2021-09-02] MEDS: POLYETHYLENE (MIRALAX) 17 GM PACK PO SCH (08:15)
[2021-09-02 08:31] LABS: Basophils # (auto) 0.01 K/uL (0-0.2); Basophils % (auto) 0.1 %; Eosinophils # (auto) 0.08 K/uL (0-0.5); Eosinophils % (auto) 1.2 %; Hematocrit (blood only) 35.6 % (37-47); Hemoglobin 11.5 g/dL (12.0-16.0); Mean Corpuscular Hemoglobin 28.9 pg (25-34); Mean Corpuscular Hgb Conc 32.3 g/dL (32-36); Mean Corpuscular Volume 89.4 fL (80-100); Monocytes # (auto) 0.78 K/uL (0.11-0.59); Monocytes % (auto) 11.7 %; Neutrophils # (auto) 5.02 K/uL (1.4-6.5); Platelet Count 212 K/uL (130-400); RDW Coefficient of Variation 13.8 % (11.5-14.5); RDW Standard Deviation 45.5 fL (36.4-46.3); Red Blood Count 3.98 M/uL (4.2-5.4); White Blood Count 6.69 K/uL (4.8-10.8)
[2021-09-02 08:52] LABS: Estimated Average Glucose 108 mg/dl; Hemoglobin A1C 5.4 % (4.5-5.6)
[2021-09-02 08:58] LABS: Chol HDL Ratio 3.7 (0-5)
--- NOTE | 2021-09-02 15:19 | Hospitalist Progress Note ---
Date of Service September 02, 2021 Assessment & Plan (1) Left humeral fracture: Plan: -Status post mechanical fall from a stool - Pain management, bowel regimen ordered - Pain reduction was difficult to acheive in the ER - got total of MS 12 mg IV and Dilaudid 1 mg with minimal improvement - no hx of narcotic tolerance per family/patient, PDMP reviewed without any Rx history. -Appreciate Ortho input and recommendation -pt is s/p reduction and splinting of Left humeral fracture - PT/OT consults -Remains stable clinically (2) Syncope: Plan: -Probable brief loss of consciousness following the fall but did not have any symptoms prior to the fall -Appears that this occurred after the patient's fall, was not the cause of the fall initially per patient/family report -Check 2D echo ofr completeness -No arrhythmias in the monitor -No need to have any cardiology consult (3) Hypothyroidism: Plan: -Continue levothyroxine (4) Migraines: Plan: -History of such, none currently, stable DVT ppx: - teds, scds CODE: Full code Likely discharge tomorrow Admission and Anticipated Discharge Date Admission Date: September 01, 2021 Subjective 09/02/2021 Patient was seen and examined in medical telemetry unit She was admitted with mechanical fall and subsequent fracture of the left humerus Complains to have pain in the left upper extremity with movement Denies any other symptoms Review of Systems Review of Systems: All systems reviewed and are unremarkable except as noted below Musculoskeletal: + joint pain (Left upper extremity pain with movement) Physical Exam Physical Exam: Lying in bed with minimal distress Constitutional: average body habitus; not ill appearing Eyes: Legally blind in the right eye ENMT: external ear and nose normal, oropharynx normal Neck: trachea midline, no thyromegaly Respiratory: no respiratory distress Auscultation: lungs clear to auscultation bilaterally Cardiovascular: Rate/Rhythm: regular rate and regular rhythm; not tachycardic Heart Sounds: normal S1 and normal S2; no murmur Extremities: no edema Gastrointestinal (Abdomen): Inspection/Auscultation: normal bowel sounds; abdomen not distended Percussion/Palpation: abdomen soft; abdomen nontender Musculoskeletal: Extremities: + limited ROM of upper extremity (Status post fracture of the left humerus) Left Neurologic: normal touch/pain/proprioception; no focal motor deficits Results & Data Results & Data ([place]) Vital Signs (Past 12 Hours) Vital Signs Temp Pulse Pulse Resp BP Pulse Ox 09/02/21 14:57 94 H 09/02/21 11:49 36.5 C 86 18 118/78 99 09/02/21 07:44 37.1 C 80 18 122/82 98 09/02/21 07:29 82 Laboratory Results Short CBC 09/02/21 Range/Units 08:00 WBC 6.69 (4.8-10.8) K/uL Hgb 11.5 L (12.0-16.0) g/dL Hct 35.6 L (37-47) % Plt Count 212 (130-400) K/uL Medications Administered Current Inpatient Medications Acetaminophen (Acetaminophen 325 Mg Tab) 650 mg PO Q4H PRN PRN Reason: Moderate Pain Stop: 10/01/21 18:06 Last Admin: 09/01/21 18:25 Dose: 650 mg Documented by: Acetaminophen (Acetaminophen 500 Mg Tab) 1,000 mg PO Q8 LUDWIG Stop: 10/01/21 21:59 Last Admin: 09/02/21 13:35 Dose: 1,000 mg Documented by: Bisacodyl (Bisacodyl 5 Mg Tabec) 5 mg PO DAILY [facility] Stop: 10/02/21 08:59 Last Admin: 09/02/21 08:15 Dose: Not Given Documented by: Hydromorphone HCl (Hydromorphone Inj 0.5 Mg/0.5 Ml Syr) 0.5 mg IV Q3H PRN PRN Reason: Pain Stop: 09/15/21 18:06 Ibuprofen (Ibuprofen 600 Mg Tab) 600 mg PO Q8H PRN PRN Reason: Pain Stop: 10/02/21 14:59 Morphine Sulfate (Morphine Sulfate 4 Mg/Ml 1 Ml Carp\Vial) 4 mg IV Q30M PRN PRN Reason: Pain Stop: 09/15/21 08:45 Last Admin: 09/01/21 12:39 Dose: 4 mg Documented by: Ondansetron HCl (Ondansetron Inj 2 Mg/Ml 2 Ml Vial) 4 mg IV Q4H PRN PRN Reason: Nausea And Vomiting Stop: 10/01/21 18:06 Last Admin: 09/01/21 18:25 Dose: 4 mg Documented by: Oxycodone HCl (Oxycodone Hcl Ir 5 Mg Tab (Immediate Release)) 5 mg PO Q4H PRN PRN Reason: Pain Stop: 09/15/21 18:06 Pantoprazole Sodium (Pantoprazole 40 Mg Tab) 40 mg PO DAILYBB [facility] Stop: 10/02/21 06:29 Last Admin: 09/02/21 06:15 Dose: 40 mg Documented by: Polyethylene Glycol (Polyethylene (Miralax) 17 Gm Pack) 17 gm PO DAILY LUDWIG Stop: 10/02/21 08:59 Last Admin: 09/02/21 08:15 Dose: Not Given Documented by:
[2021-09-02] MEDS: IBUPROFEN 600 MG TAB PO PRN ×2 (15:41→21:06)
[2021-09-03] MEDS: IBUPROFEN 600 MG TAB PO PRN (05:53)
[2021-09-03] MEDS: PANTOprazole 40 MG TAB PO SCH (05:53)
[2021-09-03] MEDS: ACETAMINOPHEN 500 MG TAB PO SCH ×2 (05:53→12:23)
[2021-09-03] MEDS ORDERED: LEVOTHYROXINE SODIUM 88 MCG TABLET PO SCH (06:30)
[2021-09-03 06:50] LABS: Hematocrit (blood only) 34.6 % (37-47); Hemoglobin 11.2 g/dL (12.0-16.0); Mean Corpuscular Hemoglobin 28.9 pg (25-34); Mean Corpuscular Hgb Conc 32.4 g/dL (32-36); Mean Corpuscular Volume 89.4 fL (80-100); Mean Platelet Volume 10.7 fL (7.4-10.4); Platelet Count 188 K/uL (130-400); RDW Coefficient of Variation 13.9 % (11.5-14.5); RDW Standard Deviation 45.7 fL (36.4-46.3); Red Blood Count 3.87 M/uL (4.2-5.4); White Blood Count 5.65 K/uL (4.8-10.8)
[2021-09-03] MEDS: bisacodyL 5 MG TABEC PO SCH (07:38)
[2021-09-03] MEDS: POLYETHYLENE (MIRALAX) 17 GM PACK PO SCH (07:38)
--- NOTE | 2021-09-03 12:18 | Hospitalist Progress Note ---
Date of Service September 03, 2021 Assessment & Plan (1) Left humeral fracture: Plan: -Status post mechanical fall from a stool - Pain management, bowel regimen ordered - Pain reduction was difficult to acheive in the ER - got total of MS 12 mg IV and Dilaudid 1 mg with minimal improvement - no hx of narcotic tolerance per family/patient, PDMP reviewed without any Rx history. -Appreciate Ortho input and recommendation -pt is s/p reduction and splinting of Left humeral fracture - PT/OT consults-appreciate input and recommendation -Remains stable clinically and will be discharged home this afternoon -Pain control with Tylenol and/or ibuprofen (2) Syncope: Plan: -Probable brief loss of consciousness following the fall but did not have any symptoms prior to the fall -Appears that this occurred after the patient's fall, was not the cause of the fall initially per patient/family report -Check 2D echo for completeness; EF 60 to 65%, normal LV relaxation and no significant valvular pathology -No arrhythmias in the monitor -No need to have any cardiology consult (3) Hypothyroidism: Plan: -Continue levothyroxine (4) Migraines: Plan: -History of such, none currently, stable DVT ppx: - teds, scds CODE: Full code She will be discharged this afternoon Admission and Anticipated Discharge Date Admission Date: September 01, 2021 Subjective 09/02/2021 Patient was seen and examined in medical telemetry unit She was admitted with mechanical fall and subsequent fracture of the left humerus Complains to have pain in the left upper extremity with movement Denies any other symptoms 09/03/2021 The patient was seen and examined in medical telemetry unit She has been feeling much better and ambulating in the hallway without any s ymptoms She will be discharged home this afternoon Review of Systems Review of Systems: All systems reviewed and are unremarkable except as noted below Musculoskeletal: + joint pain (Left upper extremity pain with movement) Physical Exam Physical Exam: Sitting at the bed without any acute distress Constitutional: average body habitus; not ill appearing ENMT: external ear and nose normal, oropharynx normal Neck: trachea midline, no thyromegaly Respiratory: no respiratory distress Auscultation: lungs clear to auscultation bilaterally Cardiovascular: Rate/Rhythm: regular rate and regular rhythm; not tachycardic Heart Sounds: normal S1 and normal S2; no murmur Extremities: no edema Gastrointestinal (Abdomen): Inspection/Auscultation: normal bowel sounds; abdomen not distended Percussion/Palpation: abdomen soft; abdomen nontender Musculoskeletal: Extremities: + limited ROM of upper extremity (Status post fracture of the left humerus) Left upper extremity is in a sling Neurologic: normal touch/pain/proprioception; no focal motor deficits Results & Data Results & [facility] Vital Signs (Past 12 Hours) Vital Signs Temp Pulse Pulse Pulse Resp BP Pulse Ox 09/03/21 11:43 37.1 C 70 18 124/79 97 09/03/21 07:43 36.8 C 74 18 133/81 97 09/03/21 07:23 72 09/03/21 03:27 36.8 C 72 18 123/71 96 Laboratory Results Short CBC 09/03/21 Range/Units 06:31 WBC 5.65 (4.8-10.8) K/uL Hgb 11.2 L (12.0-16.0) g/dL Hct 34.6 L (37-47) % Plt Count 188 (130-400) K/uL Medications Administered Current Inpatient Medications Acetaminophen (Acetaminophen 325 Mg Tab) 650 mg PO Q4H PRN PRN Reason: Moderate Pain Stop: 10/01/21 18:06 Last Admin: 09/01/21 18:25 Dose: 650 mg Documented by: Acetaminophen (Acetaminophen 500 Mg Tab) 1,000 mg PO Q8 LUDWIG Stop: 10/01/21 21:59 Last Admin: 09/03/21 05:53 Dose: 1,000 mg Documented by: Bisacodyl (Bisacodyl 5 Mg Tabec) 5 mg PO DAILY LUDWIG Stop: 10/02/21 08:59 Last Admin: 09/03/21 07:38 Dose: Not Given Documented by: Hydromorphone HCl (Hydromorphone Inj 0.5 Mg/0.5 Ml Syr) 0.5 mg IV Q3H PRN PRN Reason: Pain Stop: 09/15/21 18:06 Ibuprofen (Ibuprofen 600 Mg Tab) 600 mg PO Q8H PRN PRN Reason: Pain Stop: 10/02/21 14:59 Last Admin: 09/03/21 05:53 Dose: 600 mg Documented by: Levothyroxine Sodium (Levothyroxine Sodium 88 Mcg Tablet) 88 mcg PO DAILYBB LUDWIG Stop: 10/03/21 06:29 Last Admin: 09/03/21 07:38 Dose: 88 mcg Documented by: Morphine Sulfate (Morphine Sulfate 4 Mg/Ml 1 Ml Carp\Vial) 4 mg IV Q30M PRN PRN Reason: Pain Stop: 09/15/21 08:45 Last Admin: 09/01/21 12:39 Dose: 4 mg Documented by: Ondansetron HCl (Ondansetron Inj 2 Mg/Ml 2 Ml Vial) 4 mg IV Q4H PRN PRN Reason: Nausea And Vomiting Stop: 10/01/21 18:06 Last Admin: 09/01/21 18:25 Dose: 4 mg Documented by: Oxycodone HCl (Oxycodone Hcl Ir 5 Mg Tab (Immediate Release)) 5 mg PO Q4H PRN PRN Reason: Pain Stop: 09/15/21 18:06 Pantoprazole Sodium ([facility] 40 Mg Tab) [facility] Stop: 10/02/21 06:29 Last Admin: 09/03/21 05:53 Dose: 40 mg Documented by: Polyethylene Glycol (Polyethylene (Miralax) 17 Gm Pack) 17 gm PO DAILY [facility] Stop: 10/02/21 08:59 Last Admin: 09/03/21 07:38 Dose: Not Given Documented by:
--- NOTE | 2021-09-04 08:41 | Discharge Summary ---
Date of Service September 04, 2021 Admission HPI Per Admitting Provider This is a 56-year-old female with PMHx of hypothyroidism, GERD who presents after an acute fall she sustained at home while she was attempting to fix a curtain while standing on an end table/stool. She reports losing her balance and falling off, coming down onto the left side, and feeling extreme pain in her left arm. She was sitting up on the floor and then passed out, her reports this was likely due to pain. She has never passed out before, denies hitting her head or other trauma. Her and [id number] are present at bedside and helps support the history as she has been sedated for reduction of her left humerus fracture seen on imaging. Denies any other acute complaints. Patient did take her morning medications this morning. She denies eating anything yet today. In the ER earlier her pain was difficult to control and therefore medicine has been asked to observe her overnight, as well as work-up for syncope. Admission Exam Per Admitting Provider Physical Exam: General: awake, alert, + sedated, no apparent distress Head: Normocephalic, atraumatic ENT: PERRL, EOMI, no pharyngeal exudate, mucous membranes moist Chest: Clear to auscultation, on room air, no adventitious breath sounds Cardiac: Regular rate and rhythm, no murmur, no JVD, normal peripheral pulses, good capillary refill Abdominal: NABS x 4 quadrants, soft, nondistended, nontender to palpation, no rebound or guarding Extremities: LUE splinted and wrapped, elevated, otherwise normal inspection, no peripheral edema or erythema, calfs nontender to palpation Psych: Normal mood and affect Neuro: AAO x 3, strength intact bilaterally and rated 5/5, no gross motor deficits, speech is clear, no peripheral sensory deficits Principal Diagnosis Mechanical fall with left humerus fracture Discharge Exam Sitting at the bed without any acute distress Constitutional average body habitus; not ill appearing ENMT external ear and nose normal, oropharynx normal Neck trachea midline, no thyromegaly Respiratory no respiratory distress Auscultation: lungs clear to auscultation bilaterally Cardiovascular Rate/Rhythm: regular rate and regular rhythm; not tachycardic Heart Sounds: normal S1 and normal S2; no murmur Extremities: no edema Gastrointestinal (Abdomen) Inspection/Auscultation: normal bowel sounds; abdomen not distended Percussion/Palpation: abdomen soft; abdomen nontender Musculoskeletal Extremities: + limited ROM of upper extremity (Status post fracture of the left humerus) Neurologic normal touch/pain/proprioception; no focal motor deficits Discharge Data Allergies Allergy/AdvReac Type Severity Reaction Status Date / Time pseudoephedrine AdvReac Anxiety Verified 09/01/21 10:44 [From [facility]] Consultations 09/01/21 14:22 ED Decision to Admit Stat 09/01/21 14:34 Consult Orthopedic Surgery Routine Ordered Studies 09/01/21 08:46 CT cervical spine wo con Stat CT head/brain wo con Stat CT lumbar spine wo con Stat Hospital Course (1) Left humeral fracture: -Status post mechanical fall from a stool - Pain management, bowel regimen ordered - Pain reduction was difficult to acheive in the ER - got total of MS 12 mg IV and Dilaudid 1 mg with minimal improvement - no hx of narcotic tolerance per family/patient, PDMP reviewed without any Rx history. -Appreciate Ortho input and recommendation -pt is s/p reduction and splinting of Left humeral fracture - PT/OT consults-appreciate input and recommendation -Remains stable clinically and will be discharged home this afternoon -Pain control with Tylenol and/or ibuprofen (2) Syncope: -Probable brief loss of consciousness following the fall but did not have any symptoms prior to the fall -Appears that this occurred after the patient's fall, was not the cause of the fall initially per patient/family report -Check 2D echo for completeness; EF 60 to 65%, normal LV relaxation and no significant valvular pathology -No arrhythmias in the monitor -No need to have any cardiology consult (3) Hypothyroidism: -Continue levothyroxine (4) Migraines: -History of such, none currently, stable DVT ppx: - teds, scds CODE: Full code She will be discharged this afternoon Home Health Attestation I certify that this patient is under my care and that I, or a physicians endodontic assistant working with me, had a face to-face encounter that meets the home health [id number] encounter requirements with this patient. The encounter with the patient was in whole, or in part, for the following medical condition, which is the primary reason for home health care (list medical condition): I certify that, based on my findings, the following services are medically necessary home health services: My clinical findings support the need for the above services because: Further, I certify that my clinical findings support that this patient is homebound (i.e. absences from home require considerable and taxing effort and are for medical reasons or advent services or infrequently or of short duration when for other reasons) because: Certification for Home Health Services: Based on the above findings, I certify that this patient is confined to the home and needs intermittent fpc care, physical therapy and/or speech therapy or continues to need occupational therapy. The patient is under my care, and I have initiated the establishment of the plan of care. This patient will be followed by a physician who will periodically review the plan of care. Total Time Total Time Spent Total Time Spent (In Minutes): 35 minutes Discharge Plan Discharge Items Patient Disposition: Home - Self-Care Reason For Visit: syncope,fall,humerus fracture Discharge Diagnosis: Mechanical fall with left humerus fracture Condition on Discharge: Good Activity: As commented below Activity Comment: Try to keep the sling in place continuously Non-emergency contact: Primary Care Provider Call non-emergency contact if: you have any medication questions and your symptoms worsen Follow-up/Referrals: Srikanth Guzmán MD [Primary Care Provider] - (You will be called on Sunday with an appointment with your primary care provider within 7 days) Diet: Regular Addtl Attending Provider Instructions: Try Tylenol and/or ibuprofen for pain control Please keep the left upper extremity in sling continuously until you are being seen by orthopedic surgeon as an outpatient Please call Dr. Arreguin's office within 10 days for an Ortho appointment Pending Studies at Discharge: No Stand-Alone Forms: My [facility], Smoking Cessation Medications and DC Order Prescriptions: Continued levothyroxine 88 mcg Tablet 88 mcg PO DAILYBB RF: 0 omeprazole 20 mg capsule,delayed release(DR/EC) 20 mg PO DAILYBB RF: 0 Discharge Orders: Discharge Order (Routine); Ordered 09/03/21 Ordered By: Chucho Gonzalez/Other Patient Handouts: Preventing Falls Moving Safely ... Admission Data Admit Date/Time: 09/01/21 14:34 Attending Provider: Chucho Crawford Admit Provider: Bigg Garrido Primary Care Provider: Srikanth Guzmán Other Providers: Josh Escalera ; Bigg Garrido Other Interventions: Discharge Summary Assessment (RN) Last Done: 09/03/21 13:21
== END 2021-09-03 14:38 | disposition home or self-care (01) ==
LOC: ED 08:35 → EDINP 08:35 → SUATTDRO 14:34 → 2N 17:00